=== PATIENT | male | born 1980 | race African-American/Black ===

== ENCOUNTER 2020-09-08 12:33 | Day surgery (SDC) | payer OTHER, SELFPAY ==
--- NOTE | 2020-09-08 12:36 | HO.ANESPROP2 ---
[facility] Past Medical History Medical History ADHD Rectal bleeding Social History Social History Advance Directives: No Meds Allergies Allergy/AdvReac Type Severity Reaction Status Date / Time No Known Allergies Allergy Verified 09/05/20 16:19 Home Medications Medication Instructions Recorded Confirmed Type Adderall 20 mg PO BID 09/05/20 History Exam Exam Date and Time: September 08, 2020 1236 Assessment and Plan Final Anesthetic Review NPO: Yes Final Preanesthetic Review: No Changes in Pt Med Stat, Meds/Allgs Chart Reviewed and Consent Obtained/Reviewed Patient Risk: Low Procedure Risk: Low Anesthetic Plan Anesthetic Plan: MAC: Disposition: Standard PACU
--- NOTE | 2020-09-08 12:36 | MHC.SHP ---
Pre-Procedural Eval Section B Chief Complaint: Rectal Bleeding Relevant Family History (Specify if Yes): No Relevant Social History: None Present Medications: see Short Stay Collaborative assessment Medical History: Significant History (ADHD) History of Previous Operations: No relevant previous surgery Allergies: Allergies Allergy/AdvReac Type Severity Reaction Status Date / Time No Known Allergies Allergy Verified 09/05/20 16:19 Review of Systems Sugical H&P ROS: Negative: Constitution, Cardiovascular, Respiratory, Neurological, Psychiatric, Hem-Onc, Allergic/Immunologic, Gastrointestinal, Genitourinary, Musculoskeletal, Integumentary, Endocrine and Eyes/Ears/Nose/Throat Exam Surgical H&P Exam: Normal: HEENT, Normal: Heart, Normal: Lungs, Normal: Extremities, Normal: Abdomen, Normal: Skin and Normal: Neurological Plan Diagnosis/Plan: Unchanged Patient has been examined and remains a candidate for the planned procedure
--- NOTE | 2020-09-08 12:37 | MHC.SHP ---
Pre-Procedural Eval Section B Chief Complaint: Rectal Bleeding Allergies: Allergies Allergy/AdvReac Type Severity Reaction Status Date / Time No Known Allergies Allergy Verified 09/05/20 16:19 Plan Patient has been examined and remains a candidate for the planned procedure
--- NOTE | 2020-09-08 12:37 | PM.OP ---
Brief Operative Note Date of procedure: 09/08/20 Pre-op diagnosis: rectal bleeding Post-op diagnosis: same Procedure: see op note, colonoscopy Surgeon: Dillon Saeed MD Anesthesia: MAC Estimated blood loss (mL): 0 Condition: stable Disposition: PACU
--- NOTE | 2020-09-08 12:38 | P.OP_ITS ---
Operative Note Operative Note Narrative: Operative Information Procedure Description: Colonoscopy COLONOSCOPY Instrument: Olympus variable stiffness pediatric scope 190L Colonoscopy Monitoring: Vital signs and clinical assessment, continuous EKG monitoring, Pulse oximetry, Carbon Dioxide monitoring and blood pressure monitoring were done throughout the procedure. Colon withdrawal time was 6 minutes. Procedure: The patient was placed in the left lateral decubitis position and pre-procedure medications were administered. After a digital rectal examination of the ano-rectum, the video colonoscope was inserted into the rectum and advanced through the colon to the cecum/TI. The colonoscope was slowly withdrawn in a retrograde panoramic fashion and the colon mucosa was carefully examined including a retroflexed view of the rectum. Findings and interventions are described below. Procedure Difficulty:easy Findings: Terminal Ileum-normal Cecum:normal Ascending Colon: normal Transverse Colon -normal Descending Colon:normal Sigmoid Colon: normal Rectum: Retroflexion with moderate size internal hemorrhoids, grade II, slightly inflamamed, one area with pigmentation, looked benign, no features to suggest melanoma such as irregularity etc Anorectum - normal Colon preparation: [place] Bowel Preparation Scale Right colon; 3 Transverse colon: 3 Left colon; 2 (0 = Unprepared colon segment with mucosa not seen due to solid stool that cannot be cleared. 1 = Portion of mucosa of the colon segment seen, but other areas of the colon segment not well seen due to staining, residual stool and/or opaque liquid. 2 = Minor amount of residual staining, small fragments of stool and/or opaque liquid, but mucosa of colon segment seen well. 3 = Entire mucosa of colon segment seen well with no residual staining, small fragments of stool or opaque liquid) Impression and Post Procedure Diagnosis: rectal bleeding 2/2 internal hemorrhoids Plan: High fiber diet leaflet Avoid straining at stool, epsom salts and sitz bath at night for at least 1 week, anusol supps or cream if epsom salts dont; help, consider colorectal referral if ongoing sx Repeat Colonoscopy in 10 years or earlier if clinically indicated Above findings were reviewed with the patient and relevant handouts were provided if indicated.
[2020-09-08 12:41] VITALS: BP 130/87; PULSE 81; RESP 18; TEMP 36.1; O2SAT 100
[2020-09-08 12:43] VITALS: BMI 22.0
[2020-09-08] MEDS: Lactated Ringers 1,000 ML 50 ML IVCONT (12:53)
[2020-09-08 13:22] VITALS: BP 103/70; PULSE 88; RESP 20; TEMP 36.1; O2SAT 99
[2020-09-08 13:37] VITALS: BP 104/70; PULSE 74; RESP 20; O2SAT 100
[2020-09-08 13:51] VITALS: BP 115/77; PULSE 67; RESP 17; TEMP 36.1; O2SAT 100
--- NOTE | 2020-09-08 14:25 | HO.POSTANES ---
Post Anesthesia Evaluation Post Anesthesia Evaluation Vital Signs: Vital Signs Temp Pulse Resp BP Pulse Ox 09/08/20 13:51 97.3 F 67 17 115/77 100 09/08/20 13:37 74 20 104/70 100 09/08/20 13:22 96.9 F 88 20 103/70 99 09/08/20 12:41 97 F 81 18 130/87 100 Anesthesia: Monitored Mental Status: Awake Pain Control: Satisfactory Nausea/Vomiting: None Hydration: Adequate Anesthesia-Related Issues: No Anes. Related Issues
== END 2020-09-08 14:54 | disposition home or self-care (01) ==
PROVIDERS: Visit Provider Internal Medicine Gastroenterology
PROC: 0DJD8ZZ Inspection of Lower Intestinal Tract, Via Natural or Artificial Opening Endoscopic (ICD-10-PCS; CPT 45378; principal; 2020-09-08 13:00)
DX: K62.5 Hemorrhage of anus and rectum (principal); K64.1 Second degree hemorrhoids; F90.9 Attention-deficit hyperactivity disorder, unspecified type; Z79.899 Other long term (current) drug therapy
CPT/HCPCS: 45378

== ENCOUNTER → 2020-09-15 08:40 | Outpatient (BNVA) | payer OTHER, SELFPAY | PROVIDERS: PCP Family Medicine; Visit Provider Surgery | DX: K64.8 Other hemorrhoids (principal); K64.4 Residual hemorrhoidal skin tags | CPT/HCPCS: 46600 ==